=== PATIENT | female | born 1975 | race Caucasian/White ===

== ENCOUNTER 2017-02-23 16:52 | Emergency (ER) | payer BC ==
[2017-02-23 20:16] VITALS: BP 117/77
--- NOTE | 2017-02-23 20:37 | RAD ---
Indication: Right jaw tenderness. 5 views of the mandible demonstrates no fracture. Temporomandibular joints are grossly unremarkable. IMPRESSION: No fracture of the mandible is noted.
--- NOTE | 2017-02-23 20:57 | UC ---
UC General HPI - HPI Summary HPI Summary: ONE WEEK OF RIGHT SIDED JAW PAIN, MUSCLE STIFFNESS. YESTERDAY WAS EATING CARROT. PAIN WITH MOVING RIGHT SIDE OF JAW. - History of Current Complaint Chief Complaint: UCGeneralIllness Stated Complaint: JAW PAIN Time Seen by Provider: 02/23/17 18:42 Hx Obtained From: Patient Onset/Duration: Gradual Onset, Lasting Weeks, Still Present Onset Severity: Mild Current Severity: Moderate Pain Intensity: 6 Associated Signs & Symptoms: Positive: Decreased Oral Intake. Negative: Dizziness, Fever, Headache, Nausea, Recent Medication Changes, Trauma, Vomiting , Wheezing - Allergy/Home Medications Allergies/Adverse Reactions: Allergies Allergy/AdvReac Type Severity Reaction Status Date / Time Penicillins Allergy Intermediate Rash Verified 02/23/17 18:35 PMH/Surg Hx/FS Hx/Imm Hx Previously Healthy: Yes Endocrine History Of: Denies: Diabetes Cardiovascular History Of: Denies: Cardiac Disorders Respiratory History Of: Denies: Asthma - Surgical History Surgical History: Yes Surgery Procedure, Year, and Place: TONSILLECTOMY - Family History Known Family History: Positive: None Negative: Other - NO FAMILY HX OF TMJ DISORDER - Social History Occupation: Employed Full-time Lives: With Family Alcohol Use: Occasionally Substance Use Type: None Smoking Status (MU): Former Smoker Type: Cigarettes Have You Smoked in the Last Year: No When Did the Patient Quit Smoking/Using Tobacco: "MONTHS" AGO - Immunization History Most Recent Influenza Vaccination: none Review of Systems Constitutional: Negative Skin: Negative Eyes: Negative ENT: Ear Ache - RIGHT Respiratory: Negative Cardiovascular: Negative Gastrointestinal: Negative Genitourinary: Negative Motor: Negative Neurovascular: Negative Musculoskeletal: Arthralgia - RIGHT JAW, Edema - RIGHT JAW, Myalgia Neurological: Negative Psychological: Negative All Other Systems Reviewed And Are Negative: Yes Physical Exam Triage Information Reviewed: Yes Appearance: Well-Appearing, Well-Nourished, Pain Distress - MODERATE Vital Signs: Initial Vital Signs Temp 98.8 F 02/23/17 18:30 Pulse 81 02/23/17 18:30 Resp 15 02/23/17 18:30 BP 133/64 02/23/17 18:30 Pulse Ox 98 02/23/17 18:30 Vital Signs Reviewed: Yes Eye Exam: Normal ENT: Positive: Hearing grossly normal, TM bulging - RIGHT, TM dull - RIGHT Dental Exam: Normal Dental: Positive: Other: - TENDERNESS AT RIGHT TMJ. NO TRISMUS. Neck exam: Normal Neck: Positive: Supple, Nontender, No Lymphadenopathy Respiratory Exam: Normal Respiratory: Positive: Chest non-tender, Lungs clear, Normal breath sounds, No respiratory distress Cardiovascular Exam: Normal Cardiovascular: Positive: RRR, No Murmur, Pulses Normal Abdominal Exam: Normal Musculoskeletal: Positive: No Edema, Strength Limited @ - RIGHT TMJ, ROM Limited @ - RIGHT TMJ Neurological Exam: Normal Psychological Exam: Normal Skin Exam: Normal Course/Dx - Differential Dx - Multi-Symptom Differential Diagnoses: Other - TMJ Provider Diagnoses: RIGHT OTITIS MEDIA. RIGHT TMJ DISORDER Discharge - Discharge Plan Condition: Stable Disposition: HOME Prescriptions: Azithromycin TAB* [Zithromax TAB (Z-HANS) 250 mg #6 tabs] 250 mg PO DAILY #6 tab Patient Education Materials: Otitis Media (ED), Temporomandibular Disorder (ED) Referrals: MORRIS Bryan [Primary Care Provider] - Additional Instructions: PHYSICAL THERAPY REFERRAL: You have been prescribed physical therapy. Treatments may include stretching, exercise, application of heat or cold, and other modalities. After an injury, PT can reduce swelling and pain. In recovery, PT is used to restore mobility and strength. Your specific treatment goals are: __X___ Reduction of Swelling (EGS, US, ice as needed) __X___ Pain Reduction (EGS, US, ice as needed) TENS Pack Fitting and Instruction Wound Hydrotherapy ____X_ Preservation of Mobility ___X__ Zoroastrian of Mobility __X___ Strength Zoroastrian ___X__ Work or Sports Hardening This instruction sheet also serves as your PHYSICAL THERAPY REFERRAL! Please take it with you to the therapist, so he/she will be aware of your diagnosis and treatment plan. You may see the physical therapist of your choice for these treatments, but may wish to check with your insurance to be sure the provider you select is covered. It's important to see the doctor to whom you have been referred for follow up.
== END 2017-02-23 20:24 | disposition home or self-care (01) ==
LOC: UCCORT 16:52
DX: M26.621 Arthralgia of right temporomandibular joint (principal); H66.91 Otitis media, unspecified, right ear; Z88.0 Allergy status to penicillin; Z87.891 Personal history of nicotine dependence
CPT/HCPCS: 70110; 99212; G0463

== ENCOUNTER 2018-05-04 16:51 | Emergency (ER) | payer BC, OTHER ==
[2018-05-04 18:45] VITALS: BP 110/72
--- NOTE | 2018-05-04 19:49 | RAD ---
INDICATION: Left hip injury. COMPARISON: There are no prior studies available for comparison. TECHNIQUE: An AP view of the pelvis and frontal and lateral views of the left hip were obtained. FINDINGS: There is lateral soft tissue swelling. The bones are normal alignment. No fracture is seen. Joint spaces appear maintained. IMPRESSION: NO EVIDENCE FOR FRACTURE, IF THE PATIENT'S SYMPTOMS PERSIST RECOMMEND FOLLOW-UP IMAGING.
--- NOTE | 2018-05-04 19:49 | UC ---
Minor Trauma HPI - HPI Summary HPI Summary: Pt c/o left lateral upper thigh pain, bruising, swelling after slipping on stairs 3 days ago. Pt states she was standing and slipped down three stairs. Pt has large bruise on left lateral upper thigh. Pt reports that bruise feel warm and believes that it is "turning red". - History of Current Complaint Chief Complaint: UCSkin Stated Complaint: SKIN COMPLAINT Time Seen by Provider: 05/04/18 18:33 Hx Obtained From: Patient Hx Last Menstrual Period: [id number] ?: No Onset/Duration: Sudden Onset, Lasting Days, Worse Since - onset Onset Of Pain: Post Accident Severity Initially: Mild Severity Currently: Moderate Pain Intensity: 7 Mechanism Of Injury: Fall From A Standing Position - down thre stairs Aggravating Factor(s): Weight Bearing Alleviating Factor(s): Ice, Rest Associated Signs And Symptoms: Positive: Ecchymosis, Swelling - Risk Factors Compartment Syndrome Risk Factors: Pain - Allergies/Home Medications Allergies/Adverse Reactions: Allergies Allergy/AdvReac Type Severity Reaction Status Date / Time MS Penicillins [Penicillins] Allergy Intermediate Rash Verified 02/23/17 18:35 Home Medications: Home Medications Ibuprofen 800 mg PO Q8H 05/04/18 [History Confirmed 05/04/18] PMH/Surg Hx/FS Hx/Imm Hx Previously Healthy: Yes - Surgical History Surgical History: Yes Surgery Procedure, Year, and Place: TONSILLECTOMY - Family History Known Family History: Positive: None Negative: Other - NO FAMILY HX OF TMJ DISORDER - Social History Occupation: Employed Full-time Lives: With Family Alcohol Use: Occasionally Substance Use Type: None Smoking Status (MU): Former Smoker Type: Cigarettes Have You Smoked in the Last Year: No When Did the Patient Quit Smoking/Using Tobacco: "MONTHS" AGO - Immunization History Most Recent Influenza Vaccination: none Review of Systems Constitutional: Negative Skin: Bruising - large, left lateral upper thigh Eyes: Negative ENT: Negative Respiratory: Negative Cardiovascular: Negative Gastrointestinal: Negative Genitourinary: Negative Motor: Negative Neurovascular: Negative Musculoskeletal: Edema, Myalgia Neurological: Negative Psychological: Negative Is Patient Immunocompromised?: No All Other Systems Reviewed And Are Negative: Yes Physical Exam Triage Information Reviewed: Yes Appearance: Pain Distress Vital Signs: Initial Vital Signs Temp 98.3 F 05/04/18 18:40 Pulse 78 05/04/18 18:40 Resp 19 05/04/18 18:40 BP 110/72 05/04/18 18:40 Pulse Ox 99 05/04/18 18:40 Vital Signs Reviewed: Yes Eye Exam: Normal ENT: Positive: Hearing grossly normal Neck exam: Normal Respiratory Exam: Normal Musculoskeletal Exam: Normal Neurological Exam: Normal Psychological Exam: Normal Skin Exam: Other - left upper lateral thigh, hematoma ~ 7 cm in diameter Diagnostics - Radiology No standard instances Radiology Interpretation Completed By: Radiologist - IMPRESSION: NO EVIDENCE FOR FRACTURE, IF THE PATIENT'S SYMPTOMS PERSIST RECOMMEND FOLLOW-UP IMAGING. Minor Trauma Course/Dx - Differential Dx/Diagnosis Differential Diagnosis/HQI/PQRI: Contusion(s), Hematoma(s) Provider Diagnoses: left upper thigh hematoma Discharge - Sign-Out/Discharge Documenting (check all that apply): Patient Departure - Discharge Plan Condition: Stable Disposition: HOME Patient Education Materials: Hematoma (ED) Referrals: Jane WALDRON,Kerwin Anaya [Primary Care Provider] - If Needed - Billing Disposition and Condition Condition: STABLE Disposition: Home Attestation Statement User Type: Provider - I was available for consult. This patient was seen by the GERALD. The patient was not presented to, seen by, or examined by me. -Mi
== END 2018-05-04 20:02 | disposition home or self-care (01) ==
LOC: UCCORT 16:51
DX: S70.12XA Contusion of left thigh, initial encounter (principal); Z88.0 Allergy status to penicillin; Z87.891 Personal history of nicotine dependence; W01.0XXA Fall on same level from slipping, tripping and stumbling without subsequent striking against object, initial encounter; Y92.9 Unspecified place or not applicable
CPT/HCPCS: 99211; G0463

== ENCOUNTER 2018-06-07 11:06 | Emergency (ER) | payer BC ==
[2018-06-07 12:56] VITALS: BP 131/77
--- NOTE | 2018-06-07 13:09 | UC ---
Back Pain HPI - HPI Summary HPI Summary: Patient slipped on her stairs yesterday morning and fell down approximately 6 steps. She reports landing on her right lower back and buttock area. She presents today complaining of pain to her low back and right hip. She denies abdominal pain, saddle anesthesia, bowel or bladder dysfunction as well as numbness tingling or weakness to arms or legs. She denies any other injuries offers no other complaints.Self tx with IB - History of Current Complaint Chief Complaint: UCBackPain Stated Complaint: BACK PAIN Time Seen by Provider: 06/07/18 12:48 Hx Obtained From: Patient Hx Last Menstrual Period: 05/11/18 Onset/Duration: Sudden Onset Timing: Constant Pain Intensity: 8 Aggravating Factor(s): Movement Alleviating Factor(s): Nothing Associated Signs And Symptoms: Positive: Bruising - R buttock - Allergies/Home Medications Allergies/Adverse Reactions: Allergies Allergy/AdvReac Type Severity Reaction Status Date / Time Penicillins Allergy Rash Verified 06/07/18 12:54 PMH/Surg Hx/FS Hx/Imm Hx Previously Healthy: Yes - Surgical History Surgical History: Yes Surgery Procedure, Year, and Place: TONSILLECTOMY - Family History Known Family History: Positive: None Negative: Other - NO FAMILY HX OF TMJ DISORDER - Social History Occupation: Employed Full-time Lives: With Family Alcohol Use: Occasionally Substance Use Type: None Smoking Status (MU): Former Smoker Type: Cigarettes Have You Smoked in the Last Year: No When Did the Patient Quit Smoking/Using Tobacco: "MONTHS" AGO - Immunization History Most Recent Influenza Vaccination: none Vaccination Up to Date: Yes Review of Systems Constitutional: Negative Skin: Negative Eyes: Negative ENT: Negative Respiratory: Negative Cardiovascular: Negative Gastrointestinal: Negative Genitourinary: Negative Motor: Negative Neurovascular: Negative Musculoskeletal: Other: - low back, R buttock and R hip pain Neurological: Negative Psychological: Negative Is Patient Immunocompromised?: No All Other Systems Reviewed And Are Negative: Yes Physical Exam Triage Information Reviewed: Yes Appearance: Pain Distress Vital Signs: Initial Vital Signs Temp 98.3 F 06/07/18 12:51 Pulse 93 06/07/18 12:51 Resp 19 06/07/18 12:51 BP 131/77 06/07/18 12:51 Pulse Ox 98 06/07/18 12:51 Vital Signs Reviewed: Yes Eyes: Positive: Conjunctiva Clear ENT: Positive: Normal ENT inspection Neck: Positive: Supple, Nontender, No Lymphadenopathy Respiratory: Positive: Chest non-tender, Lungs clear, Normal breath sounds Cardiovascular: Positive: RRR, No Murmur Abdomen Description: Positive: Nontender, No Organomegaly, Soft. Negative: Distended, Guarding Bowel Sounds: Positive: Present Musculoskeletal: Positive: Other: - Head is normocephalic/atraumatic. Inspection of the back showed no gross deformity swelling or discoloration. Patient is tender to palpation over her lumbar region including the spine. The cervical thoracic spine are nontender. Specks of pelvic girdle reveals purple contusion to the right buttock. Patient complains of tenderness with palpation to the right side of her pelvis and buttock area but no crepitation or instability appreciated. The rest of her extremities are atraumatic. She is 5 out of 5 strength and 2+ reflexes 4 and is steady but slow gait. Neurological: Positive: Alert Psychological: Positive: Normal Response To Family, Age Appropriate Behavior Skin Exam: Normal Diagnostics - Radiology No standard instances Radiology Interpretation Completed By: Radiologist - R hip, pevis and lumabr=no fx's Back Pain Course/Dx - Course Course Of Treatment: pt refusing pain medication and mm relaxors. No fractures or dislocation on x-ray. No concern for infection, acute abdomen or cauda equina. - Differential Dx/Diagnosis Provider Diagnoses: acute low back pain. Contusion R buttock/hip Discharge - Sign-Out/Discharge Documenting (check all that apply): Patient Departure All imaging exams completed and their final reports reviewed: Yes - Discharge Plan Condition: Stable Disposition: HOME Prescriptions: Naproxen [Naprosyn 500 mg tab] 500 mg PO BID #10 tablet Patient Education Materials: Acute Low Back Pain (ED), Contusion in Adults (ED) Forms: *Work Release Referrals: Kerwin Ross [Primary Care Provider] - 5 Days Additional Instructions: STOP ALL PRIOR TREATMENT AND START PRESCRIPTION MEDICATION. - Billing Disposition and Condition Condition: STABLE Disposition: Home
--- NOTE | 2018-06-07 13:37 | RAD ---
INDICATION: Back pain COMPARISON: None TECHNIQUE: AP and lateral views were obtained . FINDINGS: Bones: There are no acute bony findings. There are no significant osteoarthritic findings. Alignment: There is minor levoscoliosis Disc spaces: The disc spaces are well-maintained Soft tissues: There are no soft tissue abnormalities. IMPRESSION: NO ACUTE BONY FINDINGS.
--- NOTE | 2018-06-07 13:38 | RAD ---
INDICATION: Left hip injury COMPARISON: May 04, 2018 TECHNIQUE: An AP view of the pelvis and AP views of the hip in neutral and abducted position were obtained FINDINGS: Bones: There are no acute bony findings. Joint spaces: The hips articulate normally. The joint spaces are preserved. SI joints/symphysis: The SI joints and symphysis are intact. Other: None IMPRESSION: NEGATIVE EXAMINATION.
== END 2018-06-07 13:53 | disposition home or self-care (01) ==
LOC: UCCORT 11:06
DX: S30.0XXA Contusion of lower back and pelvis, initial encounter (principal); S70.01XA Contusion of right hip, initial encounter; M54.5 Low back pain; Z88.0 Allergy status to penicillin; Z87.891 Personal history of nicotine dependence; W10.9XXA Fall (on) (from) unspecified stairs and steps, initial encounter; Y92.9 Unspecified place or not applicable
CPT/HCPCS: 72100; 99212; G0463

== ENCOUNTER 2019-03-17 11:53 | Emergency (ER) | payer BC ==
--- NOTE | 2019-03-17 15:16 | ED ---
Skin Complaint - HPI Summary HPI Summary: pt presents to the for evaluation of an irritation to her right scalp. she states she was bit by a bug several days ago. she states that she now has swelling down her right back part of her neck. she denies any fever or chills. - History of Current Complaint Stated Complaint: SKIN CONCERN Hx Obtained From: Patient Hx Last Menstrual Period: 05/11/18 Onset/Duration: Started Days Ago Timing: Constant Onset Severity: Mild Current Severity: Mild Skin Location: Other: - scalp Aggravating Symptom(s): Touch - Allergy/Home Medications Allergies/Adverse Reactions: Allergies Allergy/AdvReac Type Severity Reaction Status Date / Time Penicillins Allergy Rash Verified 03/17/19 15:15 PMH/Surg Hx/FS Hx/Imm Hx Previously Healthy: Yes Endocrine/Hematology History: Denies: Hx Diabetes Respiratory History: Denies: Hx Asthma - Surgical History Surgery Procedure, Year, and Place: TONSILLECTOMY Infectious Disease History: Denies: Traveled Outside the [place] in Last 30 Days - Family History Known Family History: Positive: None Negative: Other - NO FAMILY HX OF TMJ DISORDER - Social History Alcohol Use: Occasionally Substance Use Type: Reports: None Smoking Status (MU): Former Smoker Type: Cigarettes Have You Smoked in the Last Year: No Review of Systems Constitutional: Negative Eyes: Negative ENT: Negative Cardiovascular: Negative Respiratory: Negative Gastrointestinal: Negative Negative: burning, dysuria, discharge, hematuria Musculoskeletal: Negative Positive: Rash Neurological: Negative Psychological: Normal All Other Systems Reviewed And Are Negative: No Physical Exam Triage Information Reviewed: Yes Vital Signs Reviewed: Yes Appearance: Positive: Well-Appearing, No Pain Distress, Well-Nourished Skin: Positive: Warm, Dry Head/Face: Positive: Normal Head/Face Inspection Eyes: Positive: Normal, EOMI ENT: Positive: Normal ENT inspection, Hearing grossly normal, Pharynx normal Neck: Positive: Other: - to the right occiput scalp there is an abrasion with a very small scab, there is also a swollen lymph node inferior to the lesion. she had full rom of her neck. no other lesions. Respiratory/Lung Sounds: Positive: Clear to Auscultation, Breath Sounds Present Cardiovascular: Positive: Normal, RRR Abdomen Description: Positive: Nontender, Soft Bowel Sounds: Positive: Present Musculoskeletal: Positive: Normal, Strength/ROM Intact Neurological: Positive: Normal, Sensory/Motor Intact, Alert, Oriented to Person Place, Time, CN Intact II-III Psychiatric: Positive: Normal AVPU Assessment: Alert Course/Dx - Course Course Of Treatment: pt has an abrasion with a swollen lymph node that is tender. will start pt on abx, keflex. pt states she has taken keflex in the past. pt was non-toxic. - Diagnoses Provider Diagnoses: Cellulitis Discharge - Sign-Out/Discharge Documenting (check all that apply): Patient Departure All imaging exams completed and their final reports reviewed: No Studies - Discharge Plan Condition: Stable Disposition: HOME Prescriptions: Cephalexin CAP* [Keflex CAP*] 500 mg PO TID #21 cap Patient Education Materials: Cellulitis (ED) Referrals: Kerwin Lara PA [Primary Care Provider] - Additional Instructions: Please follow up with your primary care physician. return if worse or any new symptoms. Take tylenol and motrin for pain. - Billing Disposition and Condition Condition: STABLE Disposition: Home
[2019-03-17 15:18] VITALS: BP 119/74
== END 2019-03-17 15:22 | disposition home or self-care (01) ==
LOC: UCCORT 11:53
DX: L03.811 Cellulitis of head [any part, except face] (principal); Z88.0 Allergy status to penicillin; Z87.891 Personal history of nicotine dependence
CPT/HCPCS: 99212; G0463

== ENCOUNTER 2019-09-20 18:06 | Emergency (ER) | payer BC ==
[2019-09-20 18:26] VITALS: BP 132/82
--- NOTE | 2019-09-20 18:29 | UC ---
Skin Complaint HPI - HPI Summary HPI Summary: Patient is a 44yo female presenting with L breast redness and nipple pain x 4 days. Patient states nipple is "so tender it hurts to even have her shirt brush up against it." Patient notes redness has spread over the last couple days. Denies drainage, but "feels like it should pop like an abscess." States she thought she "felt a lump or something behind her nipple." Denies recent breast feeding. Denies any trauma to the area. Denies nipple stimulation, including during sexual encounters. Denies shaving around the nipple. Denies h/o breast and skin disorders. Denies anything like this in the past. Denies fever and chills. Denies n/v. - History of Current Complaint Chief Complaint: UCSkin Stated Complaint: LT BREAST PAIN Hx Obtained From: Patient Hx Last Menstrual Period: 05/11/18 Onset/Duration: Gradual Onset, Lasting Days Pain Intensity: 4 Pain Scale Used: 0-10 Numeric - Allergy/Home Medications Allergies/Adverse Reactions: Allergies Allergy/AdvReac Type Severity Reaction Status Date / Time Penicillins Allergy Rash Verified 09/20/19 18:26 Home Medications: Home Medications Multivitamin [Multivitamins] 1 cap PO DAILY 09/20/19 [History Confirmed 09/20/19 ] PMH/Surg Hx/FS Hx/Imm Hx Previously Healthy: Yes - Surgical History Surgical History: Yes Surgery Procedure, Year, and Place: TONSILLECTOMY, wisdom teeth extraction - Family History Known Family History: Positive: None Negative: Other - NO FAMILY HX OF TMJ DISORDER - Social History Alcohol Use: Occasionally Substance Use Type: None Smoking Status (MU): Former Smoker Type: Cigarettes Have You Smoked in the Last Year: No When Did the Patient Quit Smoking/Using Tobacco: "MONTHS" AGO - Immunization History Most Recent Influenza Vaccination: none Vaccination Up to Date: Yes Review of Systems All Other Systems Reviewed And Are Negative: Yes Constitutional: Positive: Negative Skin: Positive: Other - red, warm, painful redness of L breast and nipple Respiratory: Positive: Negative Cardiovascular: Positive: Negative Gastrointestinal: Positive: Negative. Negative: Vomiting, Nausea Musculoskeletal: Positive: Negative Neurological: Positive: Negative Physical Exam Triage Information Reviewed: Yes Appearance: Well-Appearing, No Pain Distress, Well-Nourished Vital Signs: Initial Vital Signs Temp 99.4 F 09/20/19 18:22 Pulse 93 09/20/19 18:22 Resp 18 09/20/19 18:22 BP 132/82 09/20/19 18:22 Pulse Ox 100 09/20/19 18:22 Vital Signs Reviewed: Yes Eyes: Positive: Conjunctiva Clear ENT: Positive: Hearing grossly normal Neck: Positive: Supple Respiratory Exam: Normal Respiratory: Positive: Lungs clear, Normal breath sounds, No respiratory distress Cardiovascular Exam: Normal Cardiovascular: Positive: RRR Neurological: Positive: Alert Psychological: Positive: Age Appropriate Behavior Skin: Positive: Other - erythema and warmth noted of L nipple that extends into lateral areola, not well demarcated. L nipple more edematous than R nipple. scarring noted on either side of L nipple, consistent with prior nipple piercing. no fluctuance of the area. no lump appreciated, but breast exam limited d/t pain. no discharge or blood expressed from nipple. no lesions. no peau d'orange appearance. no nipple inversion, ulceration, or excoriation. Course/Dx - Course Course Of Treatment: Patient with erythema, warmth, and edema noted L nipple and areola. No apparent abscess requiring drainage. I treated patient with Keflex for treatment of cellulitis. Patient notes she has taken keflex in the past without issue. Instructed to continue with ibuprofen and apply warm compresses. Instructed to follow up with PCP if symptoms persist. Discussed s/s of worsening cellulitis and instructed to go to ED if any occur. Patient voiced understanding and agreed with treatment plan. - Differential Diagnoses - Skin Complaint Differential Diagnoses: Cellulitis - Diagnoses Provider Diagnosis: Cellulitis of left breast Discharge ED - Sign-Out/Discharge Documenting (check all that apply): Patient Departure All imaging exams completed and their final reports reviewed: No Studies - Discharge Plan Condition: Stable Disposition: HOME Prescriptions: Cephalexin CAP* [Keflex CAP*] 500 mg PO TID #21 cap Patient Education Materials: Cellulitis (ED) Referrals: Kerwin Lara PA [Primary Care Provider] - If Needed Additional Instructions: Take Keflex as prescribed for the treatment of your skin infection. Apply warm compresses to the area for 20 minutes 2-3 times daily while symptoms persist. Keep the area clean and dry. Follow up with your primary care physician if your symptoms persist or worsen. Go to the emergency room if you experience fever, increasing redness and warmth to the area, drainage, or nausea and vomiting. - Billing Disposition and Condition Condition: STABLE Disposition: Home
== END 2019-09-20 18:59 | disposition home or self-care (01) ==
LOC: UCCORT 18:06
DX: N61.0 Mastitis without abscess (principal); Z87.891 Personal history of nicotine dependence; Z88.0 Allergy status to penicillin
CPT/HCPCS: 99212; G0463